=== PATIENT | male | born 1965 | race Caucasian/White ===

== ENCOUNTER 2021-12-30 23:43 | Inpatient (IN) | payer MEDICARE, OTHER ==
[~2021-12-30] VITALS: Ht 182.9 cm; Wt 68.0 kg
[2021-12-31 12:56] LABS: HEMOGLOBIN 12.7 gm/dl (14.0-17.5); RED BLOOD COUNT 4.57 M/UL (4.20-5.50); WHITE BLOOD COUNT 9.7 K/UL (4.5-11.0)
[2021-12-31 13:22] LABS: BUN/CREATININE RATIO 20 (0-10)
--- NOTE | 2021-12-31 18:12 | NUR ---
PATIENT RUNNING TACHY ON MONITOR IN 130'S TO 140'S. PROVIDER CALLED AND MESSAGE WITH CALL BACK INFO LEFT. NO CALL BACK AT THIS POINT. WCTM.
[2022-01-01 03:06] LABS: HEMOGLOBIN 12.1 gm/dl (14.0-17.5); RED BLOOD COUNT 4.27 M/UL (4.20-5.50); WHITE BLOOD COUNT 9.9 K/UL (4.5-11.0)
[2022-01-01 03:39] LABS: BUN/CREATININE RATIO 19 (0-10)
[2022-01-01 15:13] LABS: HEMOGLOBIN 11.7 gm/dl (14.0-17.5); RED BLOOD COUNT 4.19 M/UL (4.20-5.50)
[2022-01-01 15:14] LABS: WHITE BLOOD COUNT 15.5 K/UL (4.5-11.0)
[2022-01-01 15:32] LABS: BUN/CREATININE RATIO 19 (0-10)
[2022-01-02 02:48] LABS: HEMOGLOBIN 11.2 gm/dl (14.0-17.5); WHITE BLOOD COUNT 13.6 K/UL (4.5-11.0)
[2022-01-02 03:41] LABS: BUN/CREATININE RATIO 21 (0-10)
[2022-01-03 04:49] LABS: HEMOGLOBIN 10.2 gm/dl (14.0-17.5); RED BLOOD COUNT 3.55 M/UL (4.20-5.50); WHITE BLOOD COUNT 15.5 K/UL (4.5-11.0)
[2022-01-03 05:03] LABS: BUN/CREATININE RATIO 34 (0-10)
[2022-01-03] MEDS ORDERED: FERROUS SULFAT325 M2 PO (11:57)
[2022-01-03] MEDS ORDERED: LOPRESSOR 25 MG25 MG PO (11:57)
[2022-01-03] MEDS ORDERED: LEVOFLOXACIN500 MG PO (16:31)
[2022-01-04 05:10] LABS: HEMOGLOBIN 9.8 gm/dl (14.0-17.5); RED BLOOD COUNT 3.44 M/UL (4.20-5.50); WHITE BLOOD COUNT 10.2 K/UL (4.5-11.0)
[2022-01-04 06:02] LABS: BUN/CREATININE RATIO 28 (0-10)
[2022-01-04] MEDS ORDERED: ENOXAPARIN40 MG/0.4 SC (08:15)
[2022-01-04] MEDS ORDERED: LEVOFLOXACIN500 MG PO (08:15)
[2022-01-04] MEDS ORDERED: TYLENOL 8 HOUR650 MG PO (08:34)
== END 2022-01-04 15:07 | disposition home health service (06) | DRG 480 ==
LOC: M/S 12-31 11:25
PROVIDERS: Internal Medicine; Orthopaedic Surgery; Physician Assistant; ADMIT Internal Medicine
PROC: 0QS706Z Reposition Left Upper Femur with Intramedullary Internal Fixation Device, Open Approach (ICD-10-PCS; principal; 2022-01-01 18:30)
DX: S72.142A Displaced intertrochanteric fracture of left femur, initial encounter for closed fracture (principal); J18.9 Pneumonia, unspecified organism; G81.94 Hemiplegia, unspecified affecting left nondominant side; D50.9 Iron deficiency anemia, unspecified; Z20.822 Contact with and (suspected) exposure to COVID-19; W06.XXXA Fall from bed, initial encounter; R00.0 Tachycardia, unspecified; I10 Essential (primary) hypertension; M17.12 Unilateral primary osteoarthritis, left knee; Z87.820 Personal history of traumatic brain injury
CPT/HCPCS: 36415; 71045; 72170; 73502; 73552; 73700; 76000; 80048; 80053; 81001; 83540; 83550; 83735; 85025; 85027; 85610; 86850; 86900; 86901; 93005; 97162; 97166; 97530; 97530-GP-CQ; C1713; J0690; J0696; J1100; J1170; J1650; J2001; J2250; J2270; J2370; J2405; J2704; J2795; J3010; U0002